=== PATIENT | female | born 1970 | race Caucasian/White ===

== ENCOUNTER → 2023-10-13 09:59 | Outpatient (REF) | payer OTHER, SELFPAY | LOC: RCS 09:59 | PROVIDERS: ATTENDING PHYSICIAN Internal Medicine Interventional Cardiology; FAMILY PHYSICIAN Physician Assistant Medical | DX: E78.5 Hyperlipidemia, unspecified (principal); R06.09 Other forms of dyspnea; R07.89 Other chest pain | CPT/HCPCS: 93306; 93356 ==

== ENCOUNTER → 2023-10-16 10:15 | Outpatient (REF) | payer OTHER, SELFPAY | LOC: HWWDC 10:15 | PROVIDERS: ATTENDING PHYSICIAN Obstetrics & Gynecology Gynecology; FAMILY PHYSICIAN Physician Assistant Medical | DX: Z12.31 Encounter for screening mammogram for malignant neoplasm of breast (principal) | CPT/HCPCS: 77063; 77067 ==

== ENCOUNTER → 2023-10-21 09:41 | Outpatient (REF) | payer OTHER, SELFPAY | LOC: WDC 09:41 | PROVIDERS: ATTENDING PHYSICIAN Obstetrics & Gynecology Gynecology; FAMILY PHYSICIAN Physician Assistant Medical | DX: R92.8 Other abnormal and inconclusive findings on diagnostic imaging of breast (principal) | CPT/HCPCS: 76642 ==

== ENCOUNTER → 2023-10-28 07:09 | Outpatient (REF) | payer OTHER, SELFPAY | LOC: DHCBC/DCA 07:09 | PROVIDERS: ATTENDING PHYSICIAN Internal Medicine Interventional Cardiology; FAMILY PHYSICIAN Physician Assistant Medical | DX: R06.09 Other forms of dyspnea (principal); E78.5 Hyperlipidemia, unspecified; R07.89 Other chest pain | CPT/HCPCS: 78452; 93017; A9500 ==

== ENCOUNTER → 2023-10-30 09:07 | Outpatient (REF) | payer SELFPAY | LOC: HWRAD 09:07 | PROVIDERS: ATTENDING PHYSICIAN Internal Medicine Interventional Cardiology; FAMILY PHYSICIAN Physician Assistant Medical | DX: E78.5 Hyperlipidemia, unspecified (principal) | CPT/HCPCS: 75571 ==

== ENCOUNTER → 2024-05-10 13:07 | Outpatient (REF) | payer OTHER, SELFPAY | LOC: RAD 13:07 | PROVIDERS: ATTENDING PHYSICIAN Family Medicine | DX: R10.11 Right upper quadrant pain (principal) | CPT/HCPCS: 76700 ==

== ENCOUNTER 2024-05-12 14:27 | Day surgery (SDC) | payer OTHER, SELFPAY ==
[2024-05-12] VITALS (15 sets, daily range): BP systolic 95–139; BP diastolic 66–107; BMI 35.2
--- NOTE | 2024-05-12 07:51 | ED.GENMED ---
History of Present Illness
General
Chief Complaint: Abdominal Pain
Source: patient
Exam Limitations: none
Time Seen by Provider: 05/12/24 07:43
Nursing documentation reviewed up to this point in time: agreed with
History of Present Illness
History of Present Illness:
Patient is a 53-year-old female who presents to the ER complaining right upper quadrant pain. She has had right upper quadrant pain for the past several weeks had an ultrasound and cell surgery Dr. Damon yesterday scheduled for cholecystectomy
May 19. She had an ultrasound done May 10 which shows a 15 mm nonmobile calculus at the neck of the gallbladder. She was driving to work prior to arrival early this morning when she suddenly developed chills nausea vomiting. She does
have pain however pain was actually worse yesterday. She last drank this morning around 6 AM when she took her vitamins and pills and last ate at 8 PM last night. She is currently nauseous. She does not want anything for pain at the moment
Past History
Past History
ED Past Medical History: GERD and Hypercholesterolemia; Negative Asthma, HTN or NIDDM
ED Past Surgical History: None
Social History
Tobacco: Non-smoker
Alcohol: Occasional
Personal:
Living: with family
Review of Systems
Review of Systems
Allergies reviewed?: Yes
All Other Systems: ROS reviewed and negative except as documented in HPI and ROS
Constitutional: Reports chills; Denies fever
Respiratory: Reports no symptoms
ABD/GI: Reports abdominal pain, nausea and vomiting
: Reports no symptoms
Musculoskeletal: Reports no symptoms
Skin: Reports no symptoms
Neurological: Reports no symptoms
Psychiatric: Reports no symptoms
Phy Exam
General Physical Exam
General Presentation: no apparent distress
General age: appears stated age
General Skin: warm and dry
General Habitus: normal
General Mental: alert
General Hydration: appears well hydrated
Gastrointestinal Exam
Gastrointestinal Exam: soft and other (tender RUQ )
Course
Orders/Labs/Results
Orders:
Orders
05/12/24 07:35
IV Insert/Care/Rem.- Treatment PRN
05/12/24 07:41
Complete Blood Count/With Diff Urgent
Comprehensive Metabolic Panel Urgent
Lipase Urgent
05/12/24 07:55
0.9% Sodium Chloride 1000 ml [Nss] 1,000 ml IV BOLUS
Ondansetron Injectable [Zofran] 4 mg IV NOW STA
05/12/24 11:56
CefoTEtan [Cefotan] 2,000 mg IV PRE PROCEDURE ONE
Abnormal Lab Results
05/12/24
07:41
Hct 36.8 L %
(37.0-47.0)
MPV 11.1 H fL
(7.4-10.4)
BUN 21 H mg/dl
(7-17)
Glucose 101 H mg/dl
(70-99)
05/12/24 07:41
05/12/24 07:41
Vital Signs
Initial and Last Documented VS:
Initial Vital Signs
Temp Pulse Resp BP Pulse Ox
98.0 F 93 18 139/107 100
05/12/24 07:08 05/12/24 07:08 05/12/24 07:08 05/12/24 07:08 05/12/24 07:08
Last Documented Vital Signs
Temp Pulse Resp BP Pulse Ox
97.6 F 72 18 122/77 99
05/12/24 09:05 05/12/24 11:55 05/12/24 11:55 05/12/24 11:55 05/12/24 11:55
MDM/Problems Addressed
Differential Diagnosis Includes:
Not limited to biliary colic acute cholecystitis
MDM/Problems Addressed:
As documented patient is a 53-year-old female who presents with right upper quadrant pain scheduled for cholecystectomy May 19. She saw surgery yesterday. On ultrasound she does have a known 15 mm nonmobile calculus at the neck of the
gallbladder. She presents today with nausea chills while driving. She is mildly tender in the right upper quadrant. She is afebrile here with a normal white count normal LFTs however will require admission. Case discussed with surgery, Dr
Kassie, He will review case we will hold off on antibiotics at this time she is nontoxic.
Patient evaluated by general surgery will to OR today.
*Radiology
Radiology exam reviewed: other (Ultrasound previously reviewed from April )
*Pulse Oximetry
Patient hypoxic: no
*Critical Care Note
Total Time (30-74mins, 75-104mins- exclusive of procedures): Not Applicable
Patient Management
Discussion with other providers: Revenue Cycle Consultant (Surgery Dr. Fernando )
ED Attending Note
-
Portions of this chart may have been created with voice recognition software.� Occasional wrong word or��sound alike� substitutions may have occurred due to the inherent limitations of voice recognition software.
Discharge Plan
Departure
Patient Disposition: Admit
Date of Disposition: 05/12/24
Time of Disposition: 11:58
Admit to: OR
Admit to doctor: Kassie
Presentation/result/management discussed w/ accepting MD/DO: Hospitalist
Patient with high blood pressure during this ER visit?: Yes
Condition: Fair
Covid-19: Not Applicable
Discharge Problem:
Biliary colic
Prescriptions:
No Action
omeprazole 20 MG tablet,delayed release (/EC)
20 mg PO DAILY
sennosides-docusate sodium [Colace 2-In-1] 8.6-50 mg Tablet
1 tab-cap PO DAILYPRN PRN (Reason: constipation)
Theragen Tablet
1 tab PO DAILY
Claritin-D 24 Hour 10-240 mg Tablet Extended Release 24 Hr
1 tab PO DAILY
naproxen sodium [Aleve] 220 mg Tablet
220 mg PO BIDPRN PRN (Reason: mild pain)
sertraline 50 mg Tablet
50 mg PO DAILY
calcium carbonate-vitamin D3 [Calcium 500 + D] 500 mg-10 mcg (400 unit) Tablet
1 tab PO DAILY
omega 4-kpq-idg-fish oil [Fish Oil] 1,000 (120-180) mg Capsule
1 cap PO DAILY
Repatha SureClick 140 mg/mL Pen Injector
140 mg SC Q2W
Ozempic 0.25 mg or 0.5 mg(2 mg/1.5 mL) Pen Injector
0.25 mg SC FR
Rx Instructions:
for 4 weeks
Referrals:
Nelda Warner PA-C [Family Provider] -
Interventions
Interventions:
*Risk Screen - Suicide Last Done: 05/12/24 07:08
*General Assessment Last Done: 05/12/24 07:08
*Neglect/Abuse Screening Last Done: 05/12/24 07:08
*ED COVID-19 Vaccine History Last Done: 05/12/24 07:08
CS-Apitth-Okoobpwzvp Assessment Last Done: 05/12/24 07:34
Discharge Date and Time
Print Language: TAJIK
[2024-05-12 07:52] LABS: % Basophils 0.5 % (0-2); % Eosinophils 2.5 % (0-6); % Immature Granulocytes 0.2 % (0-0.5); % Lymphocytes 39.7 % (20.5-51.1); % Monocytes 6.6 % (1.7-9.3); % Neutrophils 50.5 % (42.2-75.2); Absolute Eosinophils 0.1 10^3/uL (0-0.7); Absolute Lymphocytes 2.2 10^3/uL (1.2-3.4); Absolute Monocytes 0.4 10^3/uL (0.1-0.6); Absolute Neutrophils 2.9 10^3/uL (1.4-6.5); Hematocrit 36.8 % (37.0-47.0); Hemoglobin 12.8 g/dL (12.0-16.0); Mean Corp Hgb Conc. 34.8 g/dL (33.0-37.0); Mean Corpuscular Hgb 29.2 pg (27.0-31.0); Mean Corpuscular Volume 83.8 fL (81.0-99.0); Mean Platelet Volume 11.1 fL (7.4-10.4); Nucleated Red Blood Cells % 0 %; Platelet Count 199 10^3/uL (130-400); Red Blood Cell Count 4.39 10^6/uL (4.20-5.40); Red Cell Dist. Width 12.3 % (11.5-14.5); White Blood Cell Count 5.6 10^3/uL (4.8-10.8)
[2024-05-12] MEDS: NSS 1000 IV (08:01)
[2024-05-12] MEDS: ZOFRAN 4 MG IV (08:01)
[2024-05-12 08:28] LABS: ALT (SGPT) 35 U/L (0-35); AST (SGOT) 33 U/L (14-36); Albumin 4.8 g/dl (3.5-5.0); Alkaline Phosphatase 69 U/L (38-126); Blood Urea Nitrogen 21 mg/dl (7-17); Calcium 9.6 mg/dl (8.4-10.2); Carbon Dioxide 23 mmol/L (22-30); Chloride 107 mmol/L (98-107); Glucose 101 mg/dl (70-99); Lipase 157 U/L (23-300); Potassium 4.1 mmol/L (3.5-5.1); Sodium 144 mmol/L (135-145); Total Bilirubin 0.6 mg/dl (0.2-1.3); Total Protein 7.1 g/dl (6.3-8.2); eGFR > 60.00
--- NOTE | 2024-05-12 11:52 | HP.FOC2 ---
Focused History & Physical
Chief Complaint
HPI:
Chief Complaint: Nausea vomiting, abdominal pain
HPI / Indication for Planned Procedure: Patient is a 53-year-old female recently seen as an outpatient for evaluation of symptomatic cholelithiasis with Dr. Darden. She was scheduled for cholecystectomy next week. Patient reports a few week
history of intermittent bouts of postprandial right upper quadrant abdominal pain. Ultrasound imaging identified a gallstone in the neck of the gallbladder, nonmobile. Last night slightly after dinner she had an exacerbation of her biliary colic
and then as she was going to work today began with nausea and vomiting in addition to persistent abdominal pain/discomfort prompting emergency department evaluation.
This is similar to her previous episodes of biliary colic but more persistent at this time with nausea and vomiting
Relevant Past Medical History: Other (Depression/anxiety, GERD, irritable bowel, high cholesterol, seasonal allergies, obesity with BMI of 35)
Relevant Social History: Negative
Relevant Family History: Negative
Relevant Past Surgical History: Positive for (Laparoscopic procedure for endometriosis, carpal tunnel)
Review of Systems
Review of Pertinent Systems: All Systems Negative (Otherwise as per HPI)
Medication
See Medication form for detailed medications: Yes
Medication List (including Herbals & OTC):
Fenofibrate 160 mg DAILY 08/16/12
norethindrone 1.5 mg-ethinyl estradiol 30 mcg(21)/iron 75 mg(7) tablet (Junel FE 1.5/30 (28)) 1 tab PO DAILY 08/16/12
omeprazole 20 mg tablet,delayed release 20 mg PO DAILY 08/16/12
simvastatin 40 mg tablet 40 mg PO DAILY 08/16/12
venlafaxine 150 mg capsule,extended release 24 hr (Effexor XR) 150 mg PO DAILY 08/16/12
Medications Reviewed: Yes
Allergies and Reactions
Patient has Allergies: Yes
Noted Allergies and Reactions:
Allergy/AdvReac Type Severity Reaction Status Date / Time
Mvahrfw-URH-JnL Reductase Allergy Unknown Verified 05/12/24 07:09
Inhibitor
Pertinent Physical Exam
All Other Systems: Negative
Head/Neck: Normal
Lungs: Normal
Heart: Normal
Abdomen: Other (Tenderness palpation epigastric and right upper quadrant. No rebound rigidity or guarding.)
Extremities: Normal
Neurological: Normal
Diagnosis / Assessment
Assessment: 53-year-old female with acute biliary colic versus acute calculus cholecystitis in the setting of known symptomatic cholelithiasis
Gallstone confirmed on previous ultrasound imaging. No biliary ductal dilation. Common bile duct 5.5 mm.
LFTs normal on today's evaluation as well as white blood cell count but still with right upper quadrant tenderness and nausea.
Recommended pursuing cholecystectomy for definitive management of gallstone mediated disease which patient is in agreement with.
Laparoscopic cholecystectomy was reviewed in detail the patient including the operative technique, alternative treatment options, benefits and potential risk such as but not limited to bleeding, infectious and related complications, iatrogenic
injury to surrounding viscera, bile duct injury, bile leak. We discussed typical postoperative recovery pending operative findings as well.
Plan / Procedure
Patient has been added onto the OR schedule for lap cole today
NPO
supportive care awaiting OR availability
Cefotetan 2 g IV ordered on-call to the OR
Anesthesia/Sedation to be done by Anesthesia Provider: Yes
--- NOTE | 2024-05-12 11:57 | W.SUR.PREOP ---
Pre-Operative Surgical Note
-
I have examined this patient prior to the performance of the scheduled procedure.
The patient's condition is unchanged from the time of the current History and
Physical and the patient is able to undergo the scheduled procedure.
--- NOTE | 2024-05-12 15:52 | W.IMMPOSTOP ---
Addendum entered and electronically signed by Moy Fernando MD 05/12/24 16:05:
#[id number]
Original Note:
Surgical Immed Post Op Note
-
Primary Surgeon: Kassie
Assisting Surgeon: Perez BANGURA
Pre-op Diagnosis: Acute Biliary Colic/Symptomatic Cholelithiasis
Post-op Diagnosis: Acute Biliary Colic/Symptomatic Cholelithiasis
Procedure Performed: Lap Fani
Anesthesia Type: GETA + 0.25% Marcaine
Specimen / Cultures: GB
Estimated Blood Loss: 6mL
Complications: none immediate
Operative Findings: distended GB with stone in neck of GB. chronic omental/periduodenal adhesions. cystic duct with 3 clips proximally. artery doubly clipped.
Plan: routine post op care, no further abx needed post op, okay for d/c home if pain/nausea controlled and rod PO
updated pt via phone call
narc escript sent
[2024-05-12] MEDS: DILAUDID 0.25 MG IV ×2 (16:31→16:43)
== END 2024-05-12 17:56 | disposition home or self-care (01) ==
LOC: PACU 14:27
PROVIDERS: ATTENDING PHYSICIAN Surgery; EMERGENCY PHYSICIAN Emergency Medicine; FAMILY PHYSICIAN Physician Assistant Medical
DX: K80.10 Calculus of gallbladder with chronic cholecystitis without obstruction (principal)
CPT/HCPCS: 47562; 88304; 80053; 83690; 85025; 96361; 96374; 99285

== ENCOUNTER → 2024-10-06 08:16 | Outpatient (REF) | payer BC, SELFPAY ==
[2024-10-06 08:34] LABS: % Basophils 0.3 % (0-2); % Eosinophils 2.6 % (0-6); % Immature Granulocytes 0.3 % (0-0.5); % Lymphocytes 37.8 % (20.5-51.1); % Monocytes 5.9 % (1.7-9.3); % Neutrophils 53.1 % (42.2-75.2); Absolute Eosinophils 0.2 10^3/uL (0-0.7); Absolute Lymphocytes 2.5 10^3/uL (1.2-3.4); Absolute Monocytes 0.4 10^3/uL (0.1-0.6); Absolute Neutrophils 3.5 10^3/uL (1.4-6.5); Hematocrit 40.4 % (37.0-47.0); Hemoglobin 14.1 g/dL (12.0-16.0); Mean Corp Hgb Conc. 34.9 g/dL (33.0-37.0); Mean Corpuscular Hgb 30.3 pg (27.0-31.0); Mean Corpuscular Volume 86.7 fL (81.0-99.0); Mean Platelet Volume 10.2 fL (7.4-10.4); Platelet Count 222 10^3/uL (130-400); Red Blood Cell Count 4.66 10^6/uL (4.20-5.40); Red Cell Dist. Width 12.3 % (11.5-14.5); White Blood Cell Count 6.7 10^3/uL (4.8-10.8)
[2024-10-06 09:30] LABS: Nucleated Red Blood Cells % 0 %
[2024-10-06 11:20] LABS: ALT (SGPT) 34 U/L (0-35); AST (SGOT) 27 U/L (14-36); Albumin 4.4 g/dl (3.5-5.0); Alkaline Phosphatase 122 U/L (38-126); Blood Urea Nitrogen 20 mg/dl (7-17); Calcium 9.7 mg/dl (8.4-10.2); Carbon Dioxide 24 mmol/L (22-30); Chloride 105 mmol/L (98-107); Glucose 84 mg/dl (70-99); Potassium 4.5 mmol/L (3.5-5.1); Sodium 139 mmol/L (135-145); Total Bilirubin 0.7 mg/dl (0.2-1.3); Total Protein 7.1 g/dl (6.3-8.2); eGFR > 60.00
[2024-10-08 02:58] LABS: Lipoprotein a (Lp a) 14 mg/dL (<=29)
== END ==
LOC: OIDL 08:16
PROVIDERS: ATTENDING PHYSICIAN Nurse Practitioner Family; FAMILY PHYSICIAN Physician Assistant Medical
DX: E88.810 Metabolic syndrome (principal); R53.83 Other fatigue; R94.5 Abnormal results of liver function studies; R73.01 Impaired fasting glucose; E78.2 Mixed hyperlipidemia
CPT/HCPCS: 36415; 80053; 80061; 83036; 83695; 83704; 84443; 85025

== ENCOUNTER → 2024-12-19 08:54 | Emergency (ER) | payer BC, SELFPAY ==
[2024-12-19 08:55] VITALS: BP 123/90
--- NOTE | 2024-12-19 09:03 | ED.GENMED ---
History of Present Illness
General
Chief Complaint: Abdominal Symptoms
Source: patient
Exam Limitations: none
Time Seen by Provider: 12/19/24 09:03
Nursing documentation reviewed up to this point in time: agreed with
History of Present Illness
History of Present Illness:
54 yo female with hx HLD, GERD, anxiety/depression, cholecystectomy presents nausea, diarrhea past 2.5 days. Started 3 mornings ago, diarrhea throughout the day and night, while on toilet felt chills, sweats, fingers and toes numb and tingly, pain
was mainly in LLQ, Pain comes then diarrhea, watery, yellowish, nonbloody. Slept well last night, this a.m. 4 bouts of diarrhea and pain is now across lower abdomen and into RUQ. Tried a sip of water and immediately had diarrhea. Is nauseous, no
vomiting.
Pain RUQ 6/10, across lower abdomen cramping /10.
No recent travel, no recent antibiotics, no known exposures, no sick contact. Denies fever.
Past History
Past History
ED Past Medical History: GERD, Hypercholesterolemia and Psychiatric (anxiety)
ED Past Surgical History: None
Social History
Tobacco: Non-smoker
Alcohol: Occasional
Personal:
Living: with family
Employment: Employed (Nurse)
Review of Systems
Review of Systems
Allergies reviewed?: Yes
All Other Systems: ROS reviewed and negative except as documented in HPI and ROS
Constitutional: Reports chills; Denies fever
Respiratory: Denies trouble breathing
Cardiac: Denies chest pain
ABD/GI: Reports abdominal pain, nausea and diarrhea; Denies vomiting, bloody stools or black stools
: Denies dysuria, frequency or difficulty voiding
Musculoskeletal: Reports no symptoms
Skin: Reports no symptoms
Neurological: Reports no symptoms
Phy Exam
Physical Exam
Physical Exam:
GENERAL: No acute distress. A&Ox3.
CONSTITUTIONAL: Afebrile.
EYES: clear, conjunctivae normal
ENMT: moist mucus membranes, Pharynx nl
RESPIRATORY: Regular respirations, nonlabored, lungs clear.
CARDIOVASCULAR: Regular rate and rhythm, no murmurs, no rubs.
GI: Soft, generally tender, hypoactive BS
MUSCULOSKELETAL: Moves with ease. Well perfused.
SKIN: Warm, dry, pink
PSYCH: Normal mood and affect. Well kept, interactive and appropriate
NEUROLOGIC: Awake, alert and oriented. No focal neurological deficits
Course
Orders/Labs/Results
Orders:
Orders
12/19/24 09:04
Urinalysis Reflex To Culture Urgent
Date Specimen was Collected: 12/19/24
Time Specimen was Collected: 09:28
0.9% Sodium Chloride 1000 ml [Nss] 1,000 ml IV BOLUS
12/19/24 09:18
CT Abd/Pel (IV only)-DH only Urgent
Comment:
Reason For Exam: pain across lower abd, RUQ, diarrhea
12/19/24 09:19
HYDROmorphone [Dilaudid] 0.5 mg IV NOW STA
Ondansetron Injectable [Zofran] 4 mg IV NOW STA
12/19/24 09:37
Complete Blood Count/With Diff Urgent
Comprehensive Metabolic Panel Urgent
Lipase Urgent
12/19/24 11:25
Ondansetron Injectable [Zofran] 4 mg IV NOW STA
Abnormal Lab Results
12/19/24
09:37
Absolute Monos (auto) 0.7 H 10^3/uL
(0.1-0.6)
Chloride 111 H mmol/L
(98-107)
Carbon Dioxide 15 L mmol/L
(22-30)
Glucose 107 H mg/dl
(70-99)
AST 58 H U/L
(14-36)
ALT 77 H U/L
(0-35)
Alkaline Phosphatase 168 H U/L
(38-126)
Albumin 5.1 H g/dl
(3.5-5.0)
12/19/24 09:37
12/19/24 09:37
Vital Signs
Initial and Last Documented VS:
Initial Vital Signs
Temp Pulse Resp BP Pulse Ox
97.8 F 103 16 123/90 100
12/19/24 08:55 12/19/24 08:55 12/19/24 08:55 12/19/24 08:55 12/19/24 08:55
Last Documented Vital Signs
Temp Pulse Resp BP Pulse Ox
97.8 F 103 16 115/85 97
12/19/24 08:55 12/19/24 08:55 12/19/24 08:55 12/19/24 09:44 12/19/24 09:45
MDM/Problems Addressed
Differential Diagnosis Includes:
Viral gastroenteritis, diverticulitis, colitis
MDM/Problems Addressed:
54 yo female with hx HLD, GERD, anxiety/depression, cholecystectomy presents nausea, diarrhea past 2.5 days. Started 3 mornings ago, diarrhea throughout the day and night, while on toilet felt chills, sweats, fingers and toes numb and tingly, pain
was mainly in LLQ, Pain comes then diarrhea, watery, yellowish, nonbloody. Slept well last night, this a.m. 4 bouts of diarrhea and pain is now across lower abdomen and into RUQ. Tried a sip of water and immediately had diarrhea. Is nauseous, no
vomiting.
Pain RUQ 6/10, across lower abdomen cramping 4/10.
No recent travel, no recent antibiotics, no known exposures, no sick contact. Denies fever.
\\
11:15 p.m.
Pt has had no diarrhea since arrival
CBC normal
CMP: CO2 15 most likely from hyperventilation otherwise, mild elevation in liver enzymes
CT abd pelvis with IV only contras radiology report read: IMPRESSION: Probable mild colitis of the left colon. New. Clinical correlation recommended.
Mild hepatomegaly. Stable.
Pt feeling better, starting to get nauseous again. Zofran ordered
No infectious symptoms
Moderate diarrhea reported >6 liquid nonbloody stools daily for past 2 days but none for past 3 hours, normal WBC, feeling better. No recent travel.
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
Pt drinking water and keeping it down
Rx Zofran sent to pt pharmacy
*Critical Care Note
Total Time (30-74mins, 75-104mins- exclusive of procedures): Not Applicable
ED Attending Note
-
Portions of this chart may have been created with voice recognition software.� Occasional wrong word or��sound alike� substitutions may have occurred due to the inherent limitations of voice recognition software.
Discharge Plan
Departure
Patient Disposition: Home (Routine Discharge)
Date of Disposition: 12/19/24
Time of Disposition: 11:36
Patient with high blood pressure during this ER visit?: No
Condition: Good
Discharge Problem:
Colitis, Diarrhea, Gastroenteritis
Instructions: Viral gastroenteritis in adults, Nausea and Vomiting, Adult (DC), Colitis
Prescriptions:
New
ondansetron 4 mg tablet,disintegrating
4 mg PO Q8H PRN (Reason: nausea and vomiting) 6 Days Qty: 14 0RF
ciprofloxacin HCl [Cipro] 500 mg tablet
500 mg PO BID Qty: 6 0RF
No Action
omeprazole 20 MG tablet,delayed release (DR/EC)
20 mg PO DAILY
sennosides-docusate sodium [Colace 2-In-1] 8.6-50 mg Tablet
1 tab-cap PO DAILYPRN PRN (Reason: constipation)
therapeutic multivitamin Tablet
1 tab PO DAILY
Claritin-D 24 Hour 10-240 mg Tablet Extended Release 24 Hr
1 tab PO DAILY
naproxen sodium [Aleve] 220 mg Tablet
220 mg PO BIDPRN PRN (Reason: mild pain)
sertraline 50 mg Tablet
50 mg PO DAILY
calcium carbonate-vitamin D3 [Calcium 500 + D] 500 mg-10 mcg (400 unit) Tablet
1 tab PO DAILY
omega 8-bxy-zps-fish oil [Fish Oil] 1,000 (120-180) mg Capsule
1 cap PO DAILY
Repatha SureClick 140 mg/mL Pen Injector
140 mg SC Q2W
Ozempic 0.25 mg or 0.5 mg(2 mg/1.5 mL) Pen Injector
0.25 mg SC FR
Rx Instructions:
for 4 weeks
oxycodone 5 mg tablet
5 mg PO Q4HPRN PRN (Reason: breakthrough/severe pain) Qty: 7 0RF
acetaminophen [Tylenol Extra Strength] 500 mg tablet
1,000 mg PO Q6HPRN PRN (Reason: mild pain) Qty: 1 0RF
ondansetron 4 mg tablet,disintegrating
4 mg PO Q8HPRN PRN (Reason: nausea/vomiting) Qty: 10 0RF
Referrals:
Ángela Guerrero MD [Active, Gastroenterology] - Next open appointment
Nelda Warner PA-C [Family Provider, Family Practice]
Activity Restrictions/Additional Instructions:
As we discussed, I sent a prescription to your pharmacy for Zofran to use as needed for nausea and vomiting.
I gave you a written prescription for Cipro to use only if you you have more than 2 bouts of diarrhea a day, or if your diarrhea persists more than 3 more days
Return here immediately for worsening abdominal pain, fever, persistent vomiting despite Zofran or feeling sicker in any way.
If you can collect a stool sample and drop it off to our [place] lab with the slip provided
Interventions
Interventions:
*Risk Screen - Suicide Last Done: 12/19/24 09:52
*General Assessment Last Done: 12/19/24 09:52
*Neglect/Abuse Screening Last Done: 12/19/24 09:52
*ED COVID-19 Vaccine History Last Done: 12/19/24 09:52
Discharge Date and Time
Print Language: YAKUT
[2024-12-19 09:35] VITALS: BMI 31.1
[2024-12-19] MEDS: NSS 1000 IV (09:35)
[2024-12-19] MEDS: ZOFRAN 4 MG IV ×2 (09:40→12:09)
[2024-12-19] MEDS: DILAUDID 0.5 MG IV (09:40)
[2024-12-19 09:44] VITALS: BP 115/85
[2024-12-19 09:45] LABS: % Basophils 0.3 % (0-2); % Eosinophils 0.7 % (0-6); % Immature Granulocytes 0.4 % (0-0.5); % Lymphocytes 21.4 % (20.5-51.1); % Monocytes 9.2 % (1.7-9.3); Absolute Eosinophils 0.1 10^3/uL (0-0.7); Absolute Lymphocytes 1.5 10^3/uL (1.2-3.4); Absolute Monocytes 0.7 10^3/uL (0.1-0.6); Absolute Neutrophils 4.8 10^3/uL (1.4-6.5); Hematocrit 41.3 % (37.0-47.0); Hemoglobin 15.2 g/dL (12.0-16.0); Mean Corp Hgb Conc. 36.8 g/dL (33.0-37.0); Mean Corpuscular Hgb 30.5 pg (27.0-31.0); Mean Corpuscular Volume 82.9 fL (81.0-99.0); Mean Platelet Volume 10.4 fL (7.4-10.4); Nucleated Red Blood Cells % 0 %; Platelet Count 210 10^3/uL (130-400); Red Blood Cell Count 4.98 10^6/uL (4.20-5.40); Red Cell Dist. Width 12.1 % (11.5-14.5); White Blood Cell Count 7.1 10^3/uL (4.8-10.8)
[2024-12-19 10:05] LABS: ALT (SGPT) 77 U/L (0-35); AST (SGOT) 58 U/L (14-36); Albumin 5.1 g/dl (3.5-5.0); Alkaline Phosphatase 168 U/L (38-126); Blood Urea Nitrogen 15 mg/dl (7-17); Calcium 9.5 mg/dl (8.4-10.2); Carbon Dioxide 15 mmol/L (22-30); Chloride 111 mmol/L (98-107); Estimated Creatinine Clearance 81 ml/min; Glucose 107 mg/dl (70-99); Lipase 105 U/L (23-300); Potassium 3.8 mmol/L (3.5-5.1); Sodium 141 mmol/L (135-145); Total Bilirubin 1.2 mg/dl (0.2-1.3); Total Protein 8.2 g/dl (6.3-8.2); eGFR > 60.00
== END | disposition home or self-care (01) ==
LOC: EMR 08:54
PROVIDERS: Registered Nurse; EMERGENCY PHYSICIAN Emergency Medicine; FAMILY PHYSICIAN Physician Assistant Medical
DX: K52.9 Noninfective gastroenteritis and colitis, unspecified (principal); E78.00 Pure hypercholesterolemia, unspecified; K21.9 Gastro-esophageal reflux disease without esophagitis; F41.8 Other specified anxiety disorders
CPT/HCPCS: 99284; 96374; 96375; 96376; 96361; 74177; 80053; 83690; 85025; Q9967

== ENCOUNTER → 2024-12-20 07:32 | Outpatient (REF) | payer BC, SELFPAY | LOC: REG 07:32 | PROVIDERS: ATTENDING PHYSICIAN Physician Assistant Medical | DX: R19.7 Diarrhea, unspecified (principal) | CPT/HCPCS: 87045; 87046; 87077; 87186; 87324; 87427; 87449 ==

== ENCOUNTER → 2025-01-11 08:02 | Outpatient (REF) | payer BC, SELFPAY ==
[2025-01-11 08:46] LABS: % Basophils 0.7 % (0-2); % Eosinophils 3.6 % (0-6); % Immature Granulocytes 0.2 % (0-0.5); % Lymphocytes 42.9 % (20.5-51.1); % Monocytes 7.4 % (1.7-9.3); % Neutrophils 45.2 % (42.2-75.2); Absolute Eosinophils 0.2 10^3/uL (0-0.7); Absolute Lymphocytes 1.9 10^3/uL (1.2-3.4); Absolute Monocytes 0.3 10^3/uL (0.1-0.6); Hematocrit 35.7 % (37.0-47.0); Hemoglobin 12.5 g/dL (12.0-16.0); Mean Corpuscular Volume 85.8 fL (81.0-99.0); Mean Platelet Volume 10.4 fL (7.4-10.4); Nucleated Red Blood Cells % 0 %; Platelet Count 217 10^3/uL (130-400); Red Blood Cell Count 4.16 10^6/uL (4.20-5.40); Red Cell Dist. Width 13.1 % (11.5-14.5); White Blood Cell Count 4.5 10^3/uL (4.8-10.8)
[2025-01-11 09:28] LABS: ALT (SGPT) 36 U/L (0-35); AST (SGOT) 25 U/L (14-36); Albumin 4.7 g/dl (3.5-5.0); Alkaline Phosphatase 103 U/L (38-126); Blood Urea Nitrogen 15 mg/dl (7-17); Calcium 9.1 mg/dl (8.4-10.2); Carbon Dioxide 22 mmol/L (22-30); Chloride 112 mmol/L (98-107); Glucose 101 mg/dl (70-99); HDL Cholesterol 54 mg/dl; LDL Cholesterol, Calculated 98 mg/dl; Potassium 4.2 mmol/L (3.5-5.1); Sodium 144 mmol/L (135-145); Total Bilirubin 0.5 mg/dl (0.2-1.3); Total Cholesterol 185 mg/dl (50-199); Total Protein 7.3 g/dl (6.3-8.2); Triglyceride 166 mg/dl (10-149); Very Low Density Lipoprotein 33 mg/dl (0-30); eGFR > 60.00
[2025-01-11 09:33] LABS: TSH Reflex To Free T4 0.99 uIU/ml (0.47-4.68)
[2025-01-12 08:58] LABS: Glycohemoglobin (HgbA1c) 4.8 % (4.0-5.6)
== END ==
LOC: OIDL 08:02
PROVIDERS: ATTENDING PHYSICIAN Physician Assistant Medical
DX: Z78.9 Other specified health status (principal)
CPT/HCPCS: 36415; 80053; 80061; 83036; 84443; 85025

== ENCOUNTER → 2025-02-28 13:31 | Outpatient (REF) | payer BC, SELFPAY | LOC: WDC 13:31 | PROVIDERS: ATTENDING PHYSICIAN Physician Assistant Medical | DX: Z12.31 Encounter for screening mammogram for malignant neoplasm of breast (principal) | CPT/HCPCS: 77063; 77067 ==

== ENCOUNTER → 2025-04-28 10:17 | Outpatient (REF) | payer BC, SELFPAY | LOC: WDC 10:17 | PROVIDERS: ATTENDING PHYSICIAN Obstetrics & Gynecology Gynecology | DX: N63.20 Unspecified lump in the left breast, unspecified quadrant (principal) | CPT/HCPCS: 76642 ==